=== PATIENT | male | born 1975 | race Caucasian/White ===

== ENCOUNTER → 2023-04-13 10:42 | Outpatient (REF) | payer BC, SELFPAY ==
[2023-04-13 11:44] LABS: % Basophils 0.8 % (0-2); % Eosinophils 4.8 % (0-6); % Immature Granulocytes 0.2 % (0-0.5); % Lymphocytes 31.3 % (20.5-51.1); % Monocytes 10.1 % (1.7-9.3); % Neutrophils 52.8 % (42.2-75.2); Absolute Eosinophils 0.2 10^3/uL (0-0.7); Absolute Lymphocytes 1.6 10^3/uL (1.2-3.4); Absolute Monocytes 0.5 10^3/uL (0.1-0.6); Absolute Neutrophils 2.7 10^3/uL (1.4-6.5); Hematocrit 45.4 % (39.0-52.0); Hemoglobin 15.7 g/dL (13.0-18.0); Mean Corp Hgb Conc. 34.6 g/dL (33.0-37.0); Mean Corpuscular Hgb 30.3 pg (27.0-31.0); Mean Corpuscular Volume 87.5 fL (80.0-94.0); Mean Platelet Volume 11.7 fL (7.4-10.4); Nucleated Red Blood Cells % 0 % (-); Platelet Count 197 10^3/uL (130-400); Red Blood Cell Count 5.19 10^6/uL (4.70-6.10); Red Cell Dist. Width 12.5 % (11.5-14.5); White Blood Cell Count 5.1 10^3/uL (4.8-10.8)
[2023-04-13 12:19] LABS: Erythrocyte Sed Rate 2 mm/hour (0-20)
[2023-04-13 12:33] LABS: ALT (SGPT) 29 U/L (0-50); AST (SGOT) 31 U/L (17-59); Albumin 4.5 g/dl (3.5-5.0); Alkaline Phosphatase 83 U/L (38-126); Blood Urea Nitrogen 15 mg/dl (9-20); Calcium 9.2 mg/dl (8.4-10.2); Carbon Dioxide 25 mmol/L (22-30); Chloride 104 mmol/L (98-107); Glucose 85 mg/dl (70-99); HDL Cholesterol 51 mg/dl; LDL Cholesterol, Calculated 182 mg/dl; Potassium 4.1 mmol/L (3.5-5.1); Sodium 137 mmol/L (135-145); Total Cholesterol 267 mg/dl (50-199); Total Protein 7.3 g/dl (6.3-8.2); Triglyceride 172 mg/dl (10-149); Very Low Density Lipoprotein 34 mg/dl (0-30); eGFR > 60.00
[2023-04-13 12:35] LABS: Vitamin D, 25-OH*** 63.3 ng/mL (30-80)
[2023-04-13 12:40] LABS: TSH Reflex To Free T4 0.95 uIU/ml (0.47-4.68)
[2023-04-13 13:02] LABS: Glycohemoglobin (HgbA1c) 5.7 % (4.0-5.6)
[2023-04-13 13:03] LABS: Total Iron Binding Capacity 372 ug/dl (261-462)
[2023-04-13 13:09] LABS: Ferritin 29.1 ng/ml (17.9-464.0)
[2023-04-13 13:23] LABS: Vitamin B12 570 pg/ml (239-931)
[2023-04-14 19:57] LABS: Hepatitis B Surface Antigen Negative (Negative)
[2023-04-14 19:58] LABS: Hepatitis B Core Ab, Total Negative (Negative); Hepatitis B Surface Antibody Negative
[2023-04-14 22:22] LABS: Vitamin D 1,25 Dihydroxy 62.2 pg/mL (19.9-79.3)
== END ==
LOC: REG 10:42
PROVIDERS: ATTENDING PHYSICIAN Specialist; FAMILY PHYSICIAN Nurse Practitioner Family
DX: Z00.00 Encounter for general adult medical examination without abnormal findings (principal); K50.10 Crohn's disease of large intestine without complications; R73.01 Impaired fasting glucose; E66.9 Obesity, unspecified; T45.2X Poisoning by, adverse effect of and underdosing of vitamins
CPT/HCPCS: 36415; 80053; 80061; 82306; 82607; 82652; 82728; 83036; 83550; 84443; 85025; 85652; 86140; 86704; 86706; 87340

== ENCOUNTER → 2023-07-21 06:37 | Day surgery (SDC) | payer BC, SELFPAY | LOC: GI 06:37 | PROVIDERS: ATTENDING PHYSICIAN Specialist | DX: K51.40 Inflammatory polyps of colon without complications (principal); D12.4 Benign neoplasm of descending colon | CPT/HCPCS: 45380; 88305 ==